=== PATIENT | female | born 1970 | race Caucasian/White ===

== ENCOUNTER 2018-05-22 05:47 | Inpatient (IN) ==
[2018-05-18 10:40] LABS: Basophils # 0.1 10*3/uL (0.0-0.2); Basophils % 0.9 % (0.0-0.8); Eosinophils # 0.2 10*3/uL (0.0-0.87); Eosinophils % 3.4 % (0.00-10.9); Hematocrit 41.7 VOL% (35.7-47.0); Hemoglobin 13.5 GM/DL (12.0-16.0); Immature Granulocytes % 0.5 %; Immature Granulocytes Absolute 0.03 #; Lymphocytes # 2.3 10*3/uL (1.4-4.0); Lymphocytes % 35.2 % (21.3-54.2); Mean Corpuscular HGB Conc 32.4 GM/DL (32-36); Mean Corpuscular Hemoglobin 30 PG (27-34); Mean Corpuscular Volume 93.1 FL (87-102); Mean Platelet Volume 9.8 FL (9.6-12.0); Monocytes # 0.6 10*3/uL (0.11-0.8); Monocytes % 8.6 % (1.7-12.7); Neutrophils # 3.3 10*3/uL (1.4-7.4); Neutrophils % 51.4 % (38.7-73.9); Platelet Count 264 T/CUMM (130-400); Red Blood Count 4.48 MC/CUMM (3.8-5.5); Red Cell Distribution Width 11.7 % (9.3-17.3); White Blood Count 6.4 T/CUMM (4-12)
[2018-05-18 11:03] LABS: Albumin 4.1 G/DL (3.4-5.0); Bilirubin,Total 0.4 MG/DL (0.2-1.0); Calcium 9.3 MG/DL (8.5-10.1); Osmolality,Calculated 277.7 MOS/KG (273-304); Potassium 3.8 MMOL/L (3.5-5.1); Total Protein 8.1 G/DL (6.4-8.3)
[2018-05-22] MEDS ORDERED: ALVIMOPAN 12 MG CAPSULE ONE (05:52)
[2018-05-22] MEDS ORDERED: ERTAPENEM 1,000 MG VIAL ONE (05:52)
[2018-05-22] MEDS ORDERED: ALVIMOPAN 12 MG CAPSULE PO ONE (06:00)
[2018-05-22] MEDS ORDERED: ERTAPENEM 1,000 MG in SODIUM CHLORIDE 0.9% 100 ML IV ONE (06:00)
[2018-05-22] MEDS ORDERED: BUPIVACAINE 0.5% 50 ML VIAL ONE (06:34)
[2018-05-22] MEDS ORDERED: LIDOCAINE 1%/EPI INJ 20 ML VIAL ONE (06:34)
[2018-05-22] MEDS ORDERED: DIAZEPAM 5 MG TABLET ONE (06:43)
[2018-05-22] MEDS ORDERED: FAMOTIDINE 20 MG TABLET ONE (06:43)
[2018-05-22] MEDS ORDERED: DIAZEPAM 5 MG TABLET PO ONE (06:44)
[2018-05-22] MEDS ORDERED: FAMOTIDINE 20 MG TABLET PO ONE (06:44)
[2018-05-22] MEDS: LACTATED RINGERS 1,000 ML IV SCH ×2 (06:55→08:00)
[2018-05-22] MEDS ORDERED: PHENYLEPHRINE 1 MG/10 ML SYRINGE IV ONE (08:28)
[2018-05-22] MEDS ORDERED: INDOCYANINE GREEN 25 MG VIAL IV ONE (09:34)
[2018-05-22] MEDS ORDERED: ONDANSETRON 4 MG/2 ML VIAL IV PRN (10:54)
[2018-05-22] MEDS ORDERED: MORPHINE 4 MG/1 ML VIAL IV PRN (10:54)
[2018-05-22] MEDS ORDERED: ROPIVACAINE 0.5% 30 ML VIAL ONE (11:02)
[2018-05-22] MEDS ORDERED: SEVOFLURANE 1 UNIT/15 MINUTE INH ONE (11:39)
[2018-05-22] MEDS ORDERED: PROPOFOL 200 MG/20 ML VIAL IV ONE (11:39)
[2018-05-22] MEDS ORDERED: SUFentanil 50 MCG/ML AMP ONE (11:40)
[2018-05-22] MEDS ORDERED: KETOROLAC 30 MG/1 ML VIAL ONE (11:40)
[2018-05-22] MEDS ORDERED: ONDANSETRON 4 MG/2 ML VIAL ONE (11:40)
[2018-05-22] MEDS ORDERED: MIDAZOLAM 2 MG/2 ML VIAL ONE (11:40)
[2018-05-22] MEDS ORDERED: NEOSTIGMINE 10 MG/10 ML VIAL ONE (11:41)
[2018-05-22] MEDS ORDERED: ACETAMINOPHEN 1,000 MG/100 ML VIAL IV ONE (11:41)
[2018-05-22] MEDS ORDERED: LACTATED RINGERS 1,000 ML IV ONE (11:41)
[2018-05-22] MEDS ORDERED: GLYCOPYRROLATE 0.4 MG/2 ML VIAL ONE (11:41)
[2018-05-22] MEDS ORDERED: ROCURONIUM 100 MG/10 ML VIAL IV ONE (11:41)
[2018-05-22 11:47] LABS: Hematocrit 39.2 VOL% (35.7-47.0); Hemoglobin 12.5 GM/DL (12.0-16.0)
[2018-05-22] MEDS: DEXTROSE 5% LACTATED RINGERS 1,000 ML IV SCH ×2 (13:45→22:35)
[2018-05-22] MEDS: cefOXitin 2,000 MG in SYRINGE 1 EACH IV SCH ×2 (16:19→21:46)
[2018-05-22 18:42] LABS: Hematocrit 36.5 VOL% (35.7-47.0); Hemoglobin 11.8 GM/DL (12.0-16.0)
[2018-05-22] MEDS: ALVIMOPAN 12 MG CAPSULE PO SCH (21:47)
[2018-05-23] MEDS: cefOXitin 2,000 MG in SYRINGE 1 EACH IV SCH (02:59)
[2018-05-23 03:14] LABS: Hematocrit 34.1 VOL% (35.7-47.0)
[2018-05-23 03:33] LABS: Albumin 3.3 G/DL (3.4-5.0); Bilirubin,Total 0.4 MG/DL (0.2-1.0); Calcium 8.2 MG/DL (8.5-10.1); Potassium 3.9 MMOL/L (3.5-5.1); Total Protein 6.2 G/DL (6.4-8.3)
[2018-05-23] MEDS: ENOXAPARIN 40 MG/0.4 ML SYRINGE SUBCUT SCH (05:07)
[2018-05-23] MEDS: DEXTROSE 5% LACTATED RINGERS 1,000 ML IV SCH ×3 (06:30→23:56)
[2018-05-23] MEDS: LACTATED RINGERS 1,000 ML IV SCH (07:03)
[2018-05-23] MEDS: ALVIMOPAN 12 MG CAPSULE PO SCH ×2 (10:00→20:08)
[2018-05-23] MEDS: PANTOPRAZOLE 40 MG TABLET PO SCH (10:00)
[2018-05-23 13:57] LABS: Calcium 8.2 MG/DL (8.5-10.1); Potassium 3.3 MMOL/L (3.5-5.1)
[2018-05-24 06:11] LABS: Calcium 7.8 MG/DL (8.5-10.1); Osmolality,Calculated 286.7 MOS/KG (273-304); Potassium 3.6 MMOL/L (3.5-5.1)
[2018-05-24] MEDS: ENOXAPARIN 40 MG/0.4 ML SYRINGE SUBCUT SCH (06:26)
[2018-05-24] MEDS ORDERED: BISACODYL 5 MG TABLET PO SCH (09:00)
[2018-05-24] MEDS: LACTATED RINGERS 1,000 ML IV SCH (09:08)
[2018-05-24] MEDS ORDERED: MAGNESIUM HYDROXIDE SUSP 30 ML UDCUP PO ONE (09:10)
[2018-05-24] MEDS: ALVIMOPAN 12 MG CAPSULE PO SCH ×2 (09:30→20:47)
[2018-05-24] MEDS: PANTOPRAZOLE 40 MG TABLET PO SCH (09:30)
[2018-05-25] MEDS: ENOXAPARIN 40 MG/0.4 ML SYRINGE SUBCUT SCH (05:55)
[2018-05-25] MEDS ORDERED: POLYETHYLENE GLYCOL POWDER 17 GM PACK PO ONE (07:36)
[2018-05-25] MEDS: PANTOPRAZOLE 40 MG TABLET PO SCH (09:14)
[2018-05-25] MEDS: ALVIMOPAN 12 MG CAPSULE PO SCH (09:14)
[2018-05-25] MEDS: LACTATED RINGERS 1,000 ML IV SCH (10:20)
[2018-05-25 11:38] VITALS: BP 123/88
== END 2018-05-25 12:57 | disposition home or self-care (01) | DRG 330 ==
LOC: N.OR 05:47 → N.SDSINP 05:55 → N.3E 10:54
PROVIDERS: ADMIT Surgery; ATTEND Surgery